=== PATIENT | male | born 1985 | race Caucasian/White ===

== ENCOUNTER 2019-01-04 12:37 | Emergency (ER) | payer SELFPAY ==
[2019-01-04] MEDS ORDERED: Adacel (T-DAP) 0.5 ML SYRINGE ONE (13:08)
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
[2019-01-04] MEDS ORDERED: Cephalexin 250 MG CAP ONE (16:00)
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
[2019-01-04] MEDS ORDERED: traMADol HCl 50 MG TAB ONE (17:58)
[2019-01-04] MEDS ORDERED: Ondansetron ODT 4 MG TAB ONE (18:12)
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
== END 2019-01-04 18:19 | disposition home or self-care (01) ==
LOC: ERS 12:37
DX: S32.039A Unspecified fracture of third lumbar vertebra, initial encounter for closed fracture (principal); S32.029A Unspecified fracture of second lumbar vertebra, initial encounter for closed fracture; S68.116A Complete traumatic metacarpophalangeal amputation of right little finger, initial encounter; S22.31XA Fracture of one rib, right side, initial encounter for closed fracture; F41.9 Anxiety disorder, unspecified; F32.9 Major depressive disorder, single episode, unspecified; F17.210 Nicotine dependence, cigarettes, uncomplicated; V89.2XXA Person injured in unspecified motor-vehicle accident, traffic, initial encounter
CPT/HCPCS: 70450; 71045; 71250; 72125; 74177; 90715; 93005; G0390; Q0162